=== PATIENT | female | born 1965 ===

== ENCOUNTER 2019-08-07 13:02 | Emergency (ER) | payer OTHER ==
[~2019-08-07] VITALS: Ht 172.7 cm; Wt 67.1 kg
== END 2019-08-07 18:45 | disposition home or self-care (01) ==
LOC: ER 13:02
DX: S93.401A Sprain of unspecified ligament of right ankle, initial encounter (principal); X50.0XXA Overexertion from strenuous movement or load, initial encounter; Y93.89 Activity, other specified; Y92.89 Other specified places as the place of occurrence of the external cause; Y99.8 Other external cause status

== ENCOUNTER 2025-06-26 15:35 | Outpatient (CLI) | payer OTHER | END 2025-06-26 15:41 | disposition home or self-care (01) | LOC: RAD 15:35 | DX: M25.572 Pain in left ankle and joints of left foot (principal); M99.01 Segmental and somatic dysfunction of cervical region; M99.02 Segmental and somatic dysfunction of thoracic region; M99.03 Segmental and somatic dysfunction of lumbar region; M99.04 Segmental and somatic dysfunction of sacral region; M99.05 Segmental and somatic dysfunction of pelvic region ==